=== PATIENT | female | born 1985 | race Two or more races ===

== ENCOUNTER 2025-02-12 21:26 | Emergency (ER) | payer OTHER ==
[~2025-02-12] VITALS: Ht 160 cm; Wt 56.2 kg
[2025-02-12 21:29] VITALS: BP 121/79
[2025-02-12 23:07] VITALS: BP 121/79; O2SAT 99
== END 2025-02-12 22:45 | disposition home or self-care (01) ==
LOC: ER 21:38
DX: S01.01XA Laceration without foreign body of scalp, initial encounter (principal); W22.09XA Striking against other stationary object, initial encounter; Y93.89 Activity, other specified; Y92.002 Bathroom of unspecified non-institutional (private) residence as the place of occurrence of the external cause; Y99.8 Other external cause status
CPT/HCPCS: A4606; A4663